=== PATIENT | female | born 1975 | race Caucasian/White ===

== ENCOUNTER 2019-05-23 14:03 | Outpatient (CLI) | payer OTHER ==
[~2019-05-23] VITALS: Ht 154.9 cm; Wt 81.8 kg
[~2019-05-23 14:03] MED LIST: ASPI-903 PO; LEVO100T8 PO; METF-849 PO; PREN1TAB62 PO
[2019-05-23 14:29] VITALS: Ht 154.9 cm; Wt 81.8 kg
[2019-05-23 14:30] VITALS: BP 125/75; PULSE 86; RESP 18
[2019-05-23] MEDS ORDERED: NIFEdipine 10 MG CAP PO ONE (16:00)
[2019-05-23] MEDS ORDERED: HYDROCODONE/APAP (5/325) TAB PO ONE (16:00)
--- NOTE | 2019-05-23 16:06 | PN ---
Triage Information Date/Time Reason for visit: Antepartum testing Weeks of Gestation 33 weeks and 6 days /Para -0-1-4 Diabetes: none Hypertention: none Objective Vital Signs Date Temp Pulse Resp B/P (MAP) Pulse Ox O2 O2 Flow FiO2 Time Delivery Rate 05/23/19 98.0 86 18 125/75 14:30 (92) Heart Rate: 130's Contractions: 6-10 Minutes Apart Results/Medications Results 24 hrs Laboratory Tests Test 05/23/19 14:15 Urine Color YELLOW Urine Clarity CLEAR Urine pH 6.0 Urine Specific [place] 1.009 Urine Ketones NEGATIVE Urine Nitrite NEGATIVE Urine Bilirubin NEGATIVE Urine Urobilinogen NEGATIVE Urine Leukocyte Esterase NEGATIVE Urine Hemoglobin NEGATIVE Urine Glucose NEGATIVE Urine Total Protein NEGATIVE Disposition: Discharge Assessment/Plan 43 years old -0-1-4 with single intrauterine at 33 weeks and 6 days with gestational hypertension, gestational diabetes A2, AMA, history of preeclampsia in all pregnancies referred for NST and biophysical profile. She states good movement. She denies nausea, vomiting, shortness of breath, chest pain, headache, visual changes, vaginal bleeding or LOF. -FHR: No sign of metabolic acidosis- Category I -Contractions: Irregular, patient is comfortable with those. Procardia 20 mg p.o. x1 given -Ultrasound performed: Normal HEMALATHA, BPP 8 out of 8 -Symptoms and sign of labor, preeclampsia, kick count discussed with patient, she voiced understanding. All of her questions answered. -Patient was discharged home in stable condition with the appropriate discharge instructions provided. I would like patient to have close follow-up with her primary physician or outpatient clinic in 1-2 days, NST in 3 days. Recommend return to triage for any other urgent concerns. SHAWNEE SAVAGE May 23, 2019 16:06
--- NOTE | 2019-05-23 17:27 | TRIAGE ---
OB Triage Datetime Report Generated by CPN: 05/23/2019 17:27 Datetime: 05/23/2019 16:50 Contraction Comments: Pt denies any ucs/ pain at the moment Datetime: 05/23/2019 16:22 Labor Evaluation Frequency: irreg Monitor Mode: External Duration (sec)2399: 50-60 Quality: Mild Pattern: Normal: <= 5 Contractions in 10 Minutes Resting Tone [place]: Relaxed Heart Rate FHR Baseline Rate: 125 Monitor Mode: External US Variability: Moderate 6-25 bpm Accelerations: 15X15 Decelerations: None Category: Category I Pain Assessment Pain Scale: 1 Pain Presence: Intermittent Pain Type: Contraction Pain Location: Abdomen Pain Relief Measures: Comfort Measures Datetime: 05/23/2019 15:46 Stage of : OB Triage Datetime: 05/23/2019 15:29 Labor Evaluation Frequency: 3-4 Monitor Mode: External Quality: Mild Pattern: Normal: <= 5 Contractions in 10 Minutes Resting Tone [place]: Relaxed Heart Rate FHR Baseline Rate: 130 Monitor Mode: External US Variability: Moderate 6-25 bpm Accelerations: 15X15 Decelerations: None Category: Category I Pain Assessment Pain Scale: 1 Pain Presence: Intermittent Pain Type: Stabbing Pain Location: Abdomen Pain Relief Measures: Comfort Measures Datetime: 05/23/2019 14:36 Assessment Type: Triage Maternal Assessment Level of Consciousness: Keenly Alert, Responsive DTR's/Clonus: DTRs 2+ Headache: Denies Blurred Vision: No Respiratory Effort: Unlabored; Regular Rhythm; Equal Expansion Breath Sounds, Left: Clear and Equal Breath Sounds, Right: Clear and Equal Nausea/Vomiting: Denies RUQ Epigastric Pain: Denies Lower Extremities Edema: Bilateral Lower Extremities Degree: 1+ Upper Extremities Edema: Bilateral Upper Extremities Degree: 1+ Facial Edema: None Fall Risk Assessment History of Falling: (0) No Secondary Diagnosis: (0) No Ambulatory Aid: (0) Bedrest/Nurse Assist IV Therapy: (0) No Gait: (0) Normal/Bedrest/Immobile Mental Status: (0) Oriented to Own Ability Fall Score: 0 Fall Risk Score Definition: No Risk: No action required Datetime: 05/23/2019 14:35 Stage of : OB Triage Labor Evaluation Frequency: 3-4 Monitor Mode: External Duration (sec)2399: 50-90 Quality: Mild Pattern: Normal: <= 5 Contractions in 10 Minutes Resting Tone [place]: Relaxed Heart Rate FHR Baseline Rate: 140 Monitor Mode: External US Variability: Moderate 6-25 bpm Accelerations: 15X15 Decelerations: None Category: Category I Pain Assessment Pain Scale: 0 Pain Presence: None/Denies Pain Type: N/A Pain Assessment Comments: pt states she feels baby moving Datetime: 05/23/2019 14:33 Time of Arrival: 05/23/2019 14:00 EGA: 33.6 Datetime: 05/23/2019 14:30 Labor Evaluation Frequency: 3-4 Monitor Mode: External Duration (sec)2399: 60-80 Quality: Mild Pattern: Normal: <= 5 Contractions in 10 Minutes Resting Tone [place]: Relaxed Contraction Comments: pt denies any ucs Heart Rate FHR Baseline Rate: 140 Monitor Mode: External US Variability: Moderate 6-25 bpm Accelerations: 15X15 Decelerations: None Category: Category I Pain Presence: None/Denies Pain Type: N/A Datetime: 05/23/2019 14:22 Stage of : OB Triage Time of Arrival: 05/23/2019 14:00 EGA: 33.6 Arrived By: Ambulatory Arrived From: Office Chief Complaint: nst/bpp Movement: Present Contractions: Occasional Rupture of Membranes: Denies Vaginal Bleeding: None Vaginal Discharge: Present Recent Sexual Intercouse: Denies Abdominal Trauma: Not Applicable Patient Complaints: Cramping Time Provider Notified: 05/23/2019 15:30 Provider Notified: Hadadian Initial Plan: TOCO, EFM, V/S Datetime: 05/23/2019 14:16 Stage of : Antepartum
== END 2019-05-23 17:14 | disposition home or self-care (01) ==
LOC: OBT 14:03 → L-D 14:04 → OBT 17:14
PROVIDERS: ATTEND Obstetrics & Gynecology
DX: O28.9 Unspecified abnormal findings on antenatal screening of mother (principal); Z3A.33 33 weeks gestation of pregnancy
CPT/HCPCS: 76818; 81003; Z7500; Z7610; G0463

== ENCOUNTER 2019-05-26 15:14 | Outpatient (CLI) | payer OTHER ==
[~2019-05-26] VITALS: Ht 154.9 cm; Wt 83.0 kg
[~2019-05-26 15:14] MED LIST changes: +DOCU-144 PO; +IBUP-1542 PO
[2019-05-26 15:28] VITALS: Ht 154.9 cm; Wt 83.0 kg
[2019-05-26 15:44] VITALS: BP 126/68; PULSE 79; RESP 18
--- NOTE | 2019-05-26 17:49 | TRIAGE ---
OB Triage Datetime Report Generated by CPN: 05/26/2019 17:49 Datetime: 05/26/2019 17:30 Stage of : OB Triage Maternal Assessment Level of Consciousness: Keenly Alert, Responsive Labor Evaluation Frequency: 3UC/HR Monitor Mode: External Duration (sec)2399: 80-130 Quality: Mild Resting Tone [place]: Relaxed Heart Rate FHR Baseline Rate: 135 Monitor Mode: External US Variability: Moderate 6-25 bpm Accelerations: 15X15 Decelerations: None Category: Category I Pain Assessment Pain Scale: 0 Pain Goal: 3 Vaginal Exam Membrane Status: Intact Vaginal Bleeding: None Datetime: 05/26/2019 16:30 Stage of : OB Triage Maternal Assessment Level of Consciousness: Keenly Alert, Responsive Labor Evaluation Frequency: 4UC/HR Monitor Mode: External Duration (sec)2399: 60-70 Quality: Mild Resting Tone [place]: Relaxed Heart Rate FHR Baseline Rate: 135 Monitor Mode: External US Variability: Moderate 6-25 bpm Accelerations: 15X15 Decelerations: None Category: Category I Pain Assessment Pain Scale: 0 Pain Goal: 3 Vaginal Exam Membrane Status: Intact Vaginal Bleeding: None Datetime: 05/26/2019 15:39 Monitor Mode: External Monitor Mode: External US Datetime: 05/26/2019 15:20 Assessment Type: Triage Maternal Assessment Level of Consciousness: Keenly Alert, Responsive DTR's/Clonus: DTRs 2+ Headache: Denies Blurred Vision: No Respiratory Effort: Unlabored; Regular Rhythm; Equal Expansion Breath Sounds, Left: Clear and Equal Breath Sounds, Right: Clear and Equal Nausea/Vomiting: Denies RUQ Epigastric Pain: Denies Lower Extremities Edema: Bilateral Lower Extremities Degree: 1+ Upper Extremities Edema: None Degree: None Facial Edema: None Fall Risk Assessment History of Falling: (0) No Secondary Diagnosis: (0) No Ambulatory Aid: (0) Bedrest/Nurse Assist IV Therapy: (0) No Gait: (0) Normal/Bedrest/Immobile Mental Status: (0) Oriented to Own Ability Fall Score: 0 Fall Risk Score Definition: No Risk: No action required Datetime: 05/26/2019 15:18 Time of Arrival: 05/26/2019 15:09 EGA: 34.2 Arrived By: Ambulatory Arrived From: Home Chief Complaint: NST/BPP FOR HYPOTHYROID,GHTN,GDM Movement: Present Contractions: Denies/Absent Rupture of Membranes: Denies Vaginal Bleeding: None Vaginal Discharge: Denies Recent Sexual Intercouse: Yes Abdominal Trauma: Not Applicable Patient Complaints: Cramping Time Provider Notified: 05/26/2019 15:47 Provider Notified: MATTIE Initial Plan: NST/BPP/BG/CVL Datetime: 05/23/2019 14:36 Fall Score: 0 Fall Risk Score Definition: No Risk: No action required Datetime: 05/23/2019 14:33 EGA: 33.6 Datetime: 05/23/2019 14:22 EGA: 33.6
--- NOTE | 2019-05-28 10:05 | PN ---
Triage Information Date/Time late entry note for 05/26/2019 Reason for visit: NST and BPP Weeks of Gestation 43 yo AMA at 34+ wks ga ZUNILDA 07/05/2019 here for NST and BPP she reports positive movement, denies contractions, denies vaginal bleeding or leaking fluid patient has gestational HTN (baby ASA), GDMA2 (metformin), Hypothyroidism Hx of preeclampsia /Para Diabetes: gestational (GDMA2) Diabetes management: oral agent Hypertention: induced (getational HTN) Additional information AMA, Hypothyroidism Objective Vital Signs Date Temp Pulse Resp B/P (MAP) Pulse Ox O2 O2 Flow FiO2 Time Delivery Rate 05/26/19 98.5 79 18 126/68 Room Air 15:44 (87) Heart Rate: 140's Heart Rate Comments FHR tracing cat1 Contractions: None Results/Medications Imaging Results PROCEDURE: OB ultrasound for biophysical profile. CLINICAL INDICATION: Contractions. TECHNIQUE: Multiple sonographic images of the pelvis were obtained using transabdominal approach. COMPARISON: Obstetrical sonogram dated 05/23/2019 FINDINGS: breathing movement = 2/2 tone = 2/2 motion = 2/2 HEMALATHA = 13.4 cm Single living intrauterine gestation with heart rate of 128 beats per minute. Posterior grade 2 placenta. Cephalic presentation. IMPRESSION: 1. Single living intrauterine gestation with cephalic presentation. 2. Biophysical profile = 8/8. 3. HEMALATHA = 13.4 cm. RPTAT:HAJM Physician Saniya Date Time Electronically viewed and signed by Physician Saniya on 05/26/2019 16:23 RM/ CC: AYAKA PHELPS MD [id number] PROCEDURE: US OB. CLINICAL INDICATION: Abdominal pain TECHNIQUE: Multiple sonographic images of the pelvis were obtained. The images were reviewed on a PACS workstation. COMPARISON: No prior studies are available for comparison. FINDINGS: Noted is a single intrauterine gestation in cephalic lie with positive heart beat measuring 148 beats per minute. The cervix measures 4.2 cm in length. IMPRESSION: Single intrauterine gestation cephalic lie with positive heart beat. .Luis Tan MD, MD Date Time Electronically viewed and signed by .Luis Tan MD, MD on 05/26/2019 17:57 .A/ CC: SHAWNEE SAVAGE [phone] Disposition: Discharge Assessment/Plan patient needs biweekly testing she should continue with daily ASA kick count instructions were given labor precautions were given she was instructed to return in 48hrs on Tuesday05/28/2019 for repeat NST, BPP She was instructed to f/u with obgyn clinic in 1-2 days AYAKA PHELPS MD May 28, 2019 10:05
== END 2019-05-26 18:09 | disposition home or self-care (01) ==
LOC: OBT 15:14 → L-D 15:14 → OBT 18:09
PROVIDERS: ATTEND Obstetrics & Gynecology
DX: O13.3 Gestational [pregnancy-induced] hypertension without significant proteinuria, third trimester (principal); O09.523 Supervision of elderly multigravida, third trimester; Z3A.34 34 weeks gestation of pregnancy
CPT/HCPCS: 76817; 76818; 82962; Z7500; G0463

== ENCOUNTER 2019-06-21 19:05 | Inpatient (IN) | payer OTHER ==
[~2019-06-21] VITALS: Ht 154.9 cm; Wt 84.2 kg
[2019-06-21] MEDS ORDERED: LACTATED RINGER'S 1,000 ML IV PRN (20:42)
[2019-06-21] MEDS ORDERED: METHYLERGONOVINE 0.2 MG INJ IM PRN (21:00)
[2019-06-21] MEDS ORDERED: MISOPROSTOL 200 MCG TAB PR PRN (21:00)
[2019-06-21] MEDS ORDERED: BUTORPHANOL 2 MG INJ IV PRN ×2 (21:00)
[2019-06-21] MEDS ORDERED: OXYTOCIN 30 UNITS/LR 500 ML IV PRN (21:00)
[2019-06-21] MEDS ORDERED: CARBOPROST 250 MCG INJ IM PRN (21:00)
[2019-06-21] MEDS ORDERED: OXYTOCIN 30 UNITS/LR 500 ML IV SCH ×2 (21:00)
[2019-06-21] MEDS ORDERED: LIDOCAINE 1% (MPF) 30 ML INJ INJ PRN (21:00)
[2019-06-21] MEDS: LACTATED RINGER'S 1,000 ML IV SCH (21:09)
[2019-06-21 21:11] VITALS: Ht 154.9 cm; Wt 84.2 kg
[2019-06-21] MEDS: GENTAMICIN 80 MG/NS (PMX) 50 ML IVPB SCH (21:47)
[2019-06-21] MEDS: MISOPROSTOL 50 MCG CAPSULE PO PRN (21:55)
[2019-06-21] MEDS: DEXTROSE 5%-LR 1,000 ML IV SCH (22:51)
[2019-06-21] MEDS: CLINDAMYCIN 900 MG (PMX) 50 ML IVPB SCH (22:51)
[2019-06-22] MEDS: MISOPROSTOL 50 MCG CAPSULE PO PRN ×5 (02:08→19:25)
[2019-06-22] MEDS: GENTAMICIN 80 MG/NS (PMX) 50 ML IVPB SCH ×3 (05:59→20:40)
[2019-06-22] MEDS ORDERED: LEVOTHYROXINE 125 MCG TAB PO SCH (06:00)
[2019-06-22] MEDS: CLINDAMYCIN 900 MG (PMX) 50 ML IVPB SCH ×3 (07:04→21:56)
[2019-06-22] MEDS: LACTATED RINGER'S 1,000 ML IV SCH ×4 (12:49→23:38)
[2019-06-22] MEDS: DEXTROSE 5%-LR 1,000 ML IV SCH ×3 (19:00→23:53)
[2019-06-22] MEDS ORDERED: FENTAnyl 2MCG/ML-ROPIV 0.2% 100 ML ONE (23:24)
[2019-06-22] MEDS ORDERED: DIPHENHYDRAMINE 50 MG INJ IV PRN (23:30)
[2019-06-22] MEDS ORDERED: ONDANSETRON 4 MG INJ IV PRN (23:30)
[2019-06-22] MEDS ORDERED: FENTAnyl 2MCG/ML-ROPIV 0.2% 100 ML BAG EPI SCH (23:30)
[2019-06-22] MEDS ORDERED: NALOXONE (0.4 MG/ML) INJ IV PRN (23:30)
[2019-06-23] VITALS (14 sets, daily range): BP systolic 130–144; BP diastolic 67–79; PULSE 66–82; RESP 18–19
[2019-06-23] MEDS: MISOPROSTOL 200 MCG TAB PR PRN ×2 (01:34→03:32)
[2019-06-23] MEDS ORDERED: OXYTOCIN 30 UNITS/LR 500 ML IV SCH (01:41)
[2019-06-23] MEDS ORDERED: CARBOPROST 250 MCG INJ IM PRN (02:00)
[2019-06-23] MEDS ORDERED: OXYTOCIN 30 UNITS/LR 500 ML IV PRN (02:00)
[2019-06-23] MEDS ORDERED: ONDANSETRON 4 MG INJ IV PRN (02:00)
[2019-06-23] MEDS ORDERED: ACETAMINOPHEN 325 MG TAB PO PRN (02:00)
[2019-06-23] MEDS ORDERED: ZOLPIDEM 5 MG TAB PO PRN (02:00)
[2019-06-23] MEDS ORDERED: NACL 0.9% 3 ML SYG IV SCH ×2 (02:00→17:00)
[2019-06-23] MEDS ORDERED: WITCH HAZEL/GLYCERIN PAD PR PRN (02:00)
[2019-06-23] MEDS ORDERED: DIPHENHYDRAMINE 25 MG CAP PO PRN (02:00)
[2019-06-23] MEDS ORDERED: LANOLIN HPA 1 PKT TOP PRN (02:00)
[2019-06-23] MEDS: IBUPROFEN 600 MG TAB PO SCH ×5 (03:20→23:51)
[2019-06-23] MEDS ORDERED: LEVOTHYROXINE 100 MCG TAB PO SCH (07:05)
[2019-06-23] MEDS: metFORMIN 500 MG TAB PO SCH ×2 (08:24→17:34)
[2019-06-23] MEDS: LEVOTHYROXINE 125 MCG TAB PO SCH (08:25)
[2019-06-23] MEDS: SENNA/DOCUSATE NA (8.6MG/50MG) TAB PO SCH ×2 (08:25→21:17)
[2019-06-23] MEDS ORDERED: ASPIRIN 81 MG TAB PO SCH (09:00)
[2019-06-23] MEDS ORDERED: CA GLUCONATE (GM) 10% 10ML INJ IV PRN (17:00)
[2019-06-23] MEDS ORDERED: MAGNESIUM SULFATE 4 GM/100 ML 100 ML IV SCH (17:00)
[2019-06-23] MEDS: LACTATED RINGER'S 1,000 ML IV SCH (17:45)
[2019-06-23] MEDS: MAGNESIUM SULFATE 20 GM/500 ML 500 ML IV SCH (18:12)
[2019-06-24] VITALS (16 sets, daily range): BP systolic 111–136; BP diastolic 64–78; PULSE 63–87; RESP 16–18
[2019-06-24] MEDS: MAGNESIUM SULFATE 20 GM/500 ML 500 ML IV SCH ×2 (04:26→12:45)
[2019-06-24] MEDS: LACTATED RINGER'S 1,000 ML IV SCH (05:29)
[2019-06-24] MEDS: IBUPROFEN 600 MG TAB PO SCH ×4 (05:29→23:31)
[2019-06-24] MEDS: LEVOTHYROXINE 125 MCG TAB PO SCH (06:44)
[2019-06-24] MEDS: HYDROCODONE/APAP (5/325) TAB PO PRN ×2 (08:26→20:01)
[2019-06-24] MEDS: SENNA/DOCUSATE NA (8.6MG/50MG) TAB PO SCH ×2 (08:26→20:01)
[2019-06-24] MEDS: metFORMIN 500 MG TAB PO SCH (08:48)
[2019-06-25 04:00] VITALS: BP 134/72; PULSE 74; RESP 18
[2019-06-25] MEDS: IBUPROFEN 600 MG TAB PO SCH ×2 (05:44→12:24)
[2019-06-25] MEDS: LEVOTHYROXINE 125 MCG TAB PO SCH (06:37)
[2019-06-25 07:40] VITALS: BP 151/80; PULSE 75; RESP 20
[2019-06-25 08:10] VITALS: BP 131/78; PULSE 90; RESP 20
[2019-06-25] MEDS: SENNA/DOCUSATE NA (8.6MG/50MG) TAB PO SCH (09:00)
[2019-06-25] MEDS ORDERED: MEASLES,MUMPS,RUBELLA VACCINE INJ SC* ONE (09:00)
[2019-06-25] MEDS ORDERED: VARICELLA VACCINE LIVE/PF 1,350 UNIT/0.5 ML ML SC* ONE (09:00)
[2019-06-25] MEDS ORDERED: DIPHTH/TET/ACEL PERTUSS (ADULT) 0.5 ML VIAL IM* ONE (09:00)
[2019-06-25 12:29] VITALS: BP 135/65; PULSE 77; RESP 20
== END 2019-06-25 16:43 | disposition home or self-care (01) | DRG 807 ==
LOC: OBT 19:05 → L-D 19:06 → OBT 20:00 → L-D 20:00 → PP1 06-23 03:14
PROVIDERS: ADMIT Obstetrics & Gynecology; ATTEND Obstetrics & Gynecology
PROC: 3E033VJ Introduction of Other Hormone into Peripheral Vein, Percutaneous Approach (ICD-10-PCS; 2019-06-22)
PROC: 3E0P7VZ Introduction of Hormone into Female Reproductive, Via Natural or Artificial Opening (ICD-10-PCS; 2019-06-22)
PROC: 10E0XZZ Delivery of Products of Conception, External Approach (ICD-10-PCS; principal; 2019-06-23)
PROC: 0HQ9XZZ Repair Perineum Skin, External Approach (ICD-10-PCS; 2019-06-23)
DX: O14.93 Unspecified pre-eclampsia, third trimester (principal); Z37.0 Single live birth; Z3A.38 38 weeks gestation of pregnancy; O24.419 Gestational diabetes mellitus in pregnancy, unspecified control; O70.0 First degree perineal laceration during delivery
CPT/HCPCS: 62322; 76815; 80053; 80069; 80076; 81001; 81003; 82570; 82962; 83615; 83735; 84560; 85014; 85018; 85025; 85384; 85610; 85730; 86592; 86850; 86900; 86901; 87340; 90716; G0463; J1580; J2590; J3010; J3475; J7120; J7121